=== PATIENT | female | born 1985 ===

== ENCOUNTER → 2017-07-10 | Emergency (ER) | payer OTHER ==
[~2017-07-10] VITALS: Ht 149.9 cm; Wt 45.4 kg
[~2017-07-10] MED LIST: ORPH100T PO
== END | disposition home or self-care (01) ==
LOC: ER 19:22
DX: S61.032A Puncture wound without foreign body of left thumb without damage to nail, initial encounter (principal); W46.0XXA Contact with hypodermic needle, initial encounter; Y93.89 Activity, other specified; Y92.69 Other specified industrial and construction area as the place of occurrence of the external cause; Y99.8 Other external cause status

== ENCOUNTER 2017-12-07 18:56 | Emergency (ER) | payer OTHER ==
[~2017-12-07] VITALS: Ht 149.9 cm; Wt 45.8 kg
== END 2017-12-07 21:56 | disposition home or self-care (01) ==
LOC: ER 18:56
DX: R30.0 Dysuria (principal); R10.2 Pelvic and perineal pain

== ENCOUNTER → 2017-12-18 | Emergency (ER) | payer OTHER ==
[~2017-12-18] VITALS: Ht 149.9 cm; Wt 45.8 kg
== END | disposition home or self-care (01) ==
LOC: ER 16:49
DX: J06.9 Acute upper respiratory infection, unspecified (principal); J32.8 Other chronic sinusitis

== ENCOUNTER 2019-03-21 20:25 | Emergency (ER) | payer OTHER ==
[~2019-03-21] VITALS: Ht 144.8 cm; Wt 48.5 kg
[2019-03-22] MEDS ORDERED: LEVSIN/SL0.125 MG SL (03:35)
[2019-03-22] MEDS ORDERED: PEPCID40 MG PO (03:35)
== END 2019-03-22 03:36 ==
LOC: ER 20:25
DX: R10.31 Right lower quadrant pain (principal)

== ENCOUNTER 2019-05-05 15:27 | Emergency (ER) | payer OTHER ==
[~2019-05-05] VITALS: Ht 144.8 cm; Wt 48.5 kg
[~2019-05-05 15:27] MED LIST changes: +LEVSIN/SL0.125 MG SL; +PEPCID40 MG PO
== END 2019-05-05 18:48 | disposition home or self-care (01) ==
LOC: ER 15:27
DX: M54.89 Other dorsalgia (principal)

== ENCOUNTER 2019-09-10 09:59 | Emergency (ER) | payer OTHER ==
[~2019-09-10] VITALS: Ht 144.8 cm; Wt 50.8 kg
[2019-09-10] MEDS ORDERED: DICLOFENAC SODI75 MG PO (11:23)
== END 2019-09-10 11:34 | disposition home or self-care (01) ==
LOC: ER 09:59
DX: M54.2 Cervicalgia (principal); M79.601 Pain in right arm; M62.838 Other muscle spasm

== ENCOUNTER 2019-12-28 02:34 | Emergency (ER) | payer OTHER ==
[~2019-12-28] VITALS: Ht 162.6 cm; Wt 59.0 kg
[~2019-12-28 02:34] MED LIST changes: +DICLOFENAC SODI75 MG PO
== END 2019-12-28 10:58 | disposition home or self-care (01) ==
LOC: ER 02:34
DX: S00.83XA Contusion of other part of head, initial encounter (principal); Y08.89XA Assault by other specified means, initial encounter; Y93.89 Activity, other specified; Y92.89 Other specified places as the place of occurrence of the external cause; Y99.8 Other external cause status; J32.0 Chronic maxillary sinusitis